=== PATIENT | female | born 1960 | race Caucasian/White ===

== ENCOUNTER 2021-10-27 21:33 | Emergency (ER) | payer MEDICAID ==
[~2021-10-27] VITALS: Ht 152.4 cm; Wt 52.0 kg
[2021-10-27 22:57] VITALS: BP 127/80
[2021-10-28] MEDS ORDERED: dexamethasone sod phosphate 10mg/ml inj PO STA (01:54)
[2021-10-28] MEDS ORDERED: ipratropium/albuterol 3ml nebule NEB ONE (01:55)
== END 2021-10-28 03:19 | disposition home or self-care (01) ==
LOC: ER 21:34
DX: S93.401A Sprain of unspecified ligament of right ankle, initial encounter (principal); M25.571 Pain in right ankle and joints of right foot; J44.1 Chronic obstructive pulmonary disease with (acute) exacerbation; X58.XXXA Exposure to other specified factors, initial encounter; Y93.89 Activity, other specified; Y92.89 Other specified places as the place of occurrence of the external cause; Y99.8 Other external cause status
CPT/HCPCS: 29515; 73610; 94640; 99284; J1100; L1930; 94760

== ENCOUNTER 2024-09-09 15:46 | Outpatient (CLI) | payer MEDICAID ==
[~2024-09-09] VITALS: Ht 142.2 cm; Wt 44.5 kg
[2024-09-09 16:16] LABS: TOTAL HEMOGLOBIN 14.2 G/dl (12.0-16.0)
[2024-09-09] MEDS: albuterol 2.5 MG/3 ML nebule NEB ONE (17:05)
[2024-09-09 17:06] VITALS: PULSE 101; RESP 20; O2SAT 91
[2024-09-09 17:19] VITALS: PULSE 101; RESP 20
--- NOTE | 2024-09-10 14:53 | PROCEDURE NOTE - Respiratory ---
Procedure Note-Respiratory Providers to Copies To 1: ANGELLA PINEDA MD Procedure Name: This is a complete pulmonary function test dated September 09, 2024. Hemoglobin measurement was done as part of the test. Spirometry measurements: There is substantial reduction in both the forced vital capacity and the FEV1. The FEV1 ratio is very low. All of the measured flow rates are extremely low. After inhaled bronchodilator there is very slight improvement in the flow volume curve. Lung volume measurements: The total lung capacity is in the normal range. There is elevation of the residual volume and functional residual capacity measurements. This suggests significant air trapping within the lungs. This is a common finding in advanced obstructive lung disease. Lung diffusion measurement: The DLCO measurement is extremely low. We note that the hemoglobin measurement is in the normal range. Airway resistance measurement: The airway resistance is very much elevated. This again suggests significant obstructive lung disease. Conclusion: This study is severely abnormal. There is evidence for severe obstructive ventilatory defect. The patient shows evidence of air trapping within the lungs. These findings together with the very low DLCO measurements strongly suggest the presence of emphysema. This patient should continue to receive bronchodilator therapy. Close pulmonary follow-up is recommended. We have no previous studies for comparison. ANGELLA PINEDA MD September 10, 2024 14:53
== END 2024-09-10 23:59 | disposition home or self-care (01) ==
LOC: RT 15:46
PROVIDERS: ATTEND Internal Medicine Pulmonary Disease
DX: J44.9 Chronic obstructive pulmonary disease, unspecified (principal); R06.09 Other forms of dyspnea; R05.9 Cough, unspecified; F17.210 Nicotine dependence, cigarettes, uncomplicated
CPT/HCPCS: 85018; 94060; 94727; 94729; 94760